=== PATIENT | female | born 1955 | race Caucasian/White ===

== ENCOUNTER 2022-03-04 10:18 | Inpatient (IN) ==
[2022-03-04] MEDS ORDERED: Iopamidol - 370 500 ML MLS IVP ONE (11:11)
[2022-03-04] MEDS ORDERED: Ipratropium/Albuterol Neb 3 ML IH ONE (11:15)
[2022-03-04 11:30] LABS: Basophils # 0.1 K/mcL (0.0-0.2); Basophils % 0.3 %; Eosinophils % 0.1 %; Hematocrit 39.6 % (35.3-44.9); Hemoglobin 12.9 g/dL (11.5-15.4); Immature Granulocytes % 0.4 % (0-4); Lymphocytes # 0.4 K/mcL (0.6-4.6); Lymphocytes % 1.9 %; Mean Corpuscular HGB Conc 32.6 g/dL (31.6-35.5); Mean Corpuscular Hemoglobin 29.1 pg (28.0-33.3); Mean Corpuscular Volume 89.2 fL (83.0-100.0); Mean Platelet Volume 8.7 fL (9.4-12.4); Monocytes # 1.3 K/mcL (0.0-1.3); Monocytes % 6.5 %; Neutrophils # 17.9 K/mcL (1.6-8.9); Platelet Count 485 K/mcL (140-400); Red Blood Count 4.44 M/mcL (3.82-4.97); Red Cell Distribution Width 13.9 % (11.5-14.5); Segmented Neutrophils % 90.8 %; White Blood Count 19.7 K/mcL (4.3-11.1)
[2022-03-04] MEDS ORDERED: Ketorolac 30 MG/ML VIAL IVP ONE (11:51)
[2022-03-04 12:03] LABS: Alanine Aminotransferase 13 Units/L (7-52); Albumin 4.3 g/dL (3.5-5.7); Albumin/Globulin Ratio 1.3 (1.1-2.2); Alkaline Phosphatase 86 Units/L (34-104); Aspartate Amino Transferase 24 Units/L (13-39); BUN/Creatinine Ratio 14 (6-26); Bilirubin,Total 0.5 mg/dL (0.3-1.0); Blood Urea Nitrogen 12 mg/dL (8-23); Calcium 9.3 mg/dL (8.6-10.3); Carbon Dioxide 26 mEq/L (23-29); Chloride 98 mEq/L (98-107); Globulin 3.4 g/dL (2.4-3.5); Glucose 138 mg/dL (70-105); Lipase 15 Units/L (11-82); Osmolality,Calculated 280 (280-300); Potassium 3.9 mEq/L (3.5-5.1); Sodium 134 mEq/L (136-145); Total Protein 7.7 g/dL (6.4-8.9); Troponin I < 0.03 ng/mL (< 0.04); eGFR For African Americans > 60 (> 60); eGFR For Non-African Americans > 60 (> 60)
[2022-03-04 12:31] LABS: Influenza A PCR Negative (Negative); Influenza B PCR Negative (Negative); Resp. Syncytial Virus PCR Negative (Negative)
[2022-03-04 12:33] LABS: SARS-CoV-2 by PCR (In House) Negative (Negative)
[2022-03-04] MEDS ORDERED: Morphine Sulfate 2 MG/ML SYRINGE IVP ONE (12:33)
[2022-03-04] MEDS ORDERED: cefTRIAXone 1,000 MG in 0.9 % Sodium Chloride 10 ML IVP ONE (14:18)
[2022-03-04] MEDS ORDERED: Naloxone 0.4 MG/ML INJ IVP PRN (14:57)
[2022-03-04] MEDS ORDERED: Ondansetron 4 MG/2 ML VIAL IVP PRN (14:57)
[2022-03-04] MEDS ORDERED: Ringers Solution, Lactated 1,000 ML IVC SCH (15:00)
[2022-03-04] MEDS ORDERED: D5% in Water 1,000 ML IVC PRN (15:03)
[2022-03-04] MEDS ORDERED: Dextrose Gel 15 GM/37.5 ML TUBE PO PRN ×2 (15:03)
[2022-03-04] MEDS ORDERED: *HR* Dextrose 50 % in Water (Syg) 50 ML SYRINGE IVP PRN (15:03)
[2022-03-04] MEDS ORDERED: *HR* Labetalol 20 MG/4 ML SYRINGE IVP PRN (15:45)
[2022-03-04] MEDS: 0.9 % Sodium Chloride 1,000 ML IVC SCH (17:53)
[2022-03-04] MEDS: Piperacillin/Tazobactam 3.375 GM in 0.9 % Sodium Chloride Mini Bag 100 ML IVPB SCH (17:54)
[2022-03-04] MEDS: Insulin LISPRO 300 UNITS/3 ML VIAL SUBQ SCH (18:01)
[2022-03-04] MEDS: Acetaminophen IV 1,000 MG/100 ML BAG IVPB SCH (18:13)
[2022-03-05] MEDS: Acetaminophen IV 1,000 MG/100 ML BAG IVPB SCH ×4 (00:10→21:09)
[2022-03-05] MEDS: Piperacillin/Tazobactam 3.375 GM in 0.9 % Sodium Chloride Mini Bag 100 ML IVPB SCH ×4 (00:11→16:56)
[2022-03-05] MEDS: Insulin LISPRO 300 UNITS/3 ML VIAL SUBQ SCH ×4 (00:12→21:08)
[2022-03-05 02:26] LABS: Basophils % 0.2 %; Hematocrit 30.9 % (35.3-44.9); Lymphocytes # 0.8 K/mcL (0.6-4.6); Lymphocytes % 3.2 %; Mean Corpuscular HGB Conc 32.7 g/dL (31.6-35.5); Mean Corpuscular Hemoglobin 29.3 pg (28.0-33.3); Mean Corpuscular Volume 89.6 fL (83.0-100.0); Monocytes # 1.6 K/mcL (0.0-1.3); Monocytes % 6.6 %; Neutrophils # 21.9 K/mcL (1.6-8.9); Platelet Count 382 K/mcL (140-400); Red Blood Count 3.45 M/mcL (3.82-4.97); Red Cell Distribution Width 14.4 % (11.5-14.5); White Blood Count 24.6 K/mcL (4.3-11.1)
[2022-03-05 02:32] LABS: Basophils # 0.1 K/mcL (0.0-0.2); Hemoglobin 10.1 g/dL (11.5-15.4)
[2022-03-05 02:33] LABS: INR 1.3; Prothrombin Time 14.9 Seconds (9.4-12.1)
[2022-03-05 02:36] LABS: Activated Partial Thrombo Time 31.4 Seconds (26.0-36.0); Magnesium 1.6 mg/dL (1.6-2.6); Phosphorous 4.1 mg/dL (2.7-4.5); Potassium 4.2 mEq/L (3.5-5.1)
[2022-03-05 03:08] LABS: Calcium 8.1 mg/dL (8.6-10.3)
[2022-03-05] MEDS: 0.9 % Sodium Chloride 1,000 ML IVC SCH ×3 (07:52→21:29)
[2022-03-05] MEDS ORDERED: Pantoprazole 40 MG VIAL IVP SCH (09:00)
[2022-03-05] MEDS ORDERED: Levothyroxine Sodium 100 MCG VIAL IVP SCH (09:00)
[2022-03-05] MEDS ORDERED: *HR* FentaNYL (PF) 100 MCG/2 ML VIAL ONE (14:25)
[2022-03-05] MEDS ORDERED: Lidocaine -MPF 2% 2 ML VIAL ONE (14:25)
[2022-03-05] MEDS ORDERED: Ondansetron 4 MG/2 ML VIAL ONE (14:25)
[2022-03-05] MEDS ORDERED: *HR* Rocuronium Bromide 50 MG/5 ML VIAL ONE (14:25)
[2022-03-05] MEDS ORDERED: *HR* Propofol 200 MG/20 ML VIAL IVP ONE ×2 (14:25→18:17)
[2022-03-05] MEDS ORDERED: Naloxone 0.4 MG/ML INJ IVP PRN ×2 (14:57→19:22)
[2022-03-05] MEDS ORDERED: Ondansetron 4 MG/2 ML VIAL IVP PRN ×2 (14:57→19:22)
[2022-03-05] MEDS ORDERED: Nitroglycerin 0.4 MG TAB.SUBL SL PRN (14:57)
[2022-03-05] MEDS ORDERED: Albuterol 2.5 MG/3 ML NEBULIZER IH PRN (14:57)
[2022-03-05] MEDS ORDERED: *HR* Midazolam HCl 2 MG/2 ML VIAL ONE (15:27)
[2022-03-05] MEDS ORDERED: Albuterol 2.5 MG/3 ML NEBULIZER IH ONE (15:29)
[2022-03-05] MEDS ORDERED: Lidocaine HCL 4 ML Topical Solution (Laryng-O-Jet Kit Sterile Pak) TP ONE (17:02)
[2022-03-05] MEDS ORDERED: Sugammadex Sodium 200 MG/2 ML VIAL IV ONE (18:27)
[2022-03-05] MEDS ORDERED: *HR* Labetalol 20 MG/4 ML SYRINGE IVP PRN ×2 (19:01→19:22)
[2022-03-05] MEDS: *HR* HYDROmorphone (PF) 1 MG/ML SYRINGE IVP PRN ×2 (19:15→19:23)
[2022-03-05] MEDS ORDERED: D5% in Water 1,000 ML IVC PRN (19:22)
[2022-03-05] MEDS ORDERED: Dextrose Gel 15 GM/37.5 ML TUBE PO PRN ×2 (19:22)
[2022-03-05] MEDS ORDERED: *HR* Dextrose 50 % in Water (Syg) 50 ML SYRINGE IVP PRN (19:22)
[2022-03-06] MEDS: Acetaminophen IV 1,000 MG/100 ML BAG IVPB SCH ×4 (00:43→16:25)
[2022-03-06] MEDS: Piperacillin/Tazobactam 3.375 GM in 0.9 % Sodium Chloride Mini Bag 100 ML IVPB SCH ×3 (00:49→16:24)
[2022-03-06] MEDS: Insulin LISPRO 300 UNITS/3 ML VIAL SUBQ SCH ×4 (01:38→17:46)
[2022-03-06] MEDS: Levalbuterol Neb 1.25 MG/3 ML IH SCH ×5 (01:58→20:29)
[2022-03-06] MEDS: 0.9 % Sodium Chloride 1,000 ML IVC SCH ×3 (02:27→11:52)
[2022-03-06 05:18] LABS: Basophils % 0.1 %; Hematocrit 28.9 % (35.3-44.9); Hemoglobin 9.1 g/dL (11.5-15.4); Lymphocytes # 0.4 K/mcL (0.6-4.6); Lymphocytes % 1.8 %; Mean Corpuscular HGB Conc 31.5 g/dL (31.6-35.5); Mean Corpuscular Hemoglobin 29.3 pg (28.0-33.3); Mean Corpuscular Volume 92.9 fL (83.0-100.0); Monocytes # 1.1 K/mcL (0.0-1.3); Monocytes % 5.1 %; Neutrophils # 19.2 K/mcL (1.6-8.9); Platelet Count 330 K/mcL (140-400); Red Blood Count 3.11 M/mcL (3.82-4.97); Red Cell Distribution Width 14.7 % (11.5-14.5); White Blood Count 20.9 K/mcL (4.3-11.1)
[2022-03-06 05:39] LABS: Alanine Aminotransferase 67 Units/L (7-52); Albumin 3.2 g/dL (3.5-5.7); Albumin/Globulin Ratio 1.2 (1.1-2.2); Alkaline Phosphatase 62 Units/L (34-104); Aspartate Amino Transferase 103 Units/L (13-39); BUN/Creatinine Ratio 17 (6-26); Bilirubin,Total 0.4 mg/dL (0.3-1.0); Blood Urea Nitrogen 15 mg/dL (8-23); Calcium 7.6 mg/dL (8.6-10.3); Carbon Dioxide 23 mEq/L (23-29); Chloride 107 mEq/L (98-107); Globulin 2.6 g/dL (2.4-3.5); Glucose 117 mg/dL (70-105); Osmolality,Calculated 286 (280-300); Sodium 137 mEq/L (136-145); Total Protein 5.8 g/dL (6.4-8.9); eGFR For African Americans > 60 (> 60); eGFR For Non-African Americans > 60 (> 60)
[2022-03-06] MEDS: ARIPiprazole 10 MG TABLET PO SCH (08:48)
[2022-03-06] MEDS: estradioL 0.5 MG TABLET PO SCH (08:48)
[2022-03-06] MEDS: PARoxetine 20 MG TABLET PO SCH (08:49)
[2022-03-06] MEDS: Pregabalin 75 MG CAPSULE PO SCH ×2 (08:49→21:21)
[2022-03-06] MEDS: Metoprolol XL (24 HR) Succ 25 MG TAB.ER.24H PO SCH (08:49)
[2022-03-06] MEDS: (Mirabegron [Myrbetriq] 50 MG Tab.Er.24h) PO SCH (08:53)
[2022-03-06] MEDS: Pantoprazole 40 MG VIAL IVP SCH (08:54)
[2022-03-06] MEDS ORDERED: Levothyroxine Sodium 100 MCG VIAL IVP SCH (09:00)
[2022-03-06] MEDS ORDERED: Fluticasone Propionate Nasal 50 MCG/SPRAY BOTTLE NS PRN (10:05)
[2022-03-06] MEDS: Budesonide/Formoterol 80/4.5 1 PUFF INH IH SCH ×2 (11:48→20:29)
[2022-03-06] MEDS: *HR* Heparin 5,000 UNIT/ML VIAL SQ SCH (17:45)
[2022-03-06] MEDS ORDERED: traZODone 50 MG TABLET PO SCH (21:00)
[2022-03-07] MEDS: Insulin LISPRO 300 UNITS/3 ML VIAL SUBQ SCH ×4 (00:32→15:09)
[2022-03-07] MEDS: traZODone 50 MG TABLET PO SCH ×2 (00:45→19:56)
[2022-03-07] MEDS: 0.9 % Sodium Chloride 1,000 ML IVC SCH ×3 (00:46→09:52)
[2022-03-07] MEDS: Piperacillin/Tazobactam 3.375 GM in 0.9 % Sodium Chloride Mini Bag 100 ML IVPB SCH ×3 (00:48→17:04)
[2022-03-07] MEDS: Acetaminophen IV 1,000 MG/100 ML BAG IVPB SCH ×4 (00:49→17:05)
[2022-03-07] MEDS: Levalbuterol Neb 1.25 MG/3 ML IH SCH ×4 (04:08→22:29)
[2022-03-07] MEDS: *HR* Heparin 5,000 UNIT/ML VIAL SQ SCH ×2 (05:25→15:09)
[2022-03-07] MEDS ORDERED: methylPREDNISolone 125 MG/2 ML VIAL IVP ONE (08:37)
[2022-03-07 09:40] LABS: Phosphorous 1.8 mg/dL (2.7-4.5)
[2022-03-07 09:41] LABS: Alanine Aminotransferase 48 Units/L (7-52); Albumin/Globulin Ratio 1.1 (1.1-2.2); Alkaline Phosphatase 53 Units/L (34-104); Aspartate Amino Transferase 38 Units/L (13-39); BUN/Creatinine Ratio 12 (6-26); Basophils % 0.3 %; Bilirubin,Total 0.4 mg/dL (0.3-1.0); Blood Urea Nitrogen 9 mg/dL (8-23); Carbon Dioxide 21 mEq/L (23-29); Chloride 110 mEq/L (98-107); Eosinophils # 0.2 K/mcL (0.0-0.6); Eosinophils % 1.3 %; Globulin 2.8 g/dL (2.4-3.5); Glucose 100 mg/dL (70-105); Hematocrit 26.6 % (35.3-44.9); Hemoglobin 8.5 g/dL (11.5-15.4); Immature Granulocytes % 0.9 % (0-4); Lymphocytes # 1.2 K/mcL (0.6-4.6); Lymphocytes % 9.6 %; Mean Corpuscular Hemoglobin 29.5 pg (28.0-33.3); Mean Corpuscular Volume 92.4 fL (83.0-100.0); Mean Platelet Volume 8.9 fL (9.4-12.4); Monocytes # 0.9 K/mcL (0.0-1.3); Monocytes % 7.7 %; Neutrophils # 9.6 K/mcL (1.6-8.9); Osmolality,Calculated 285 (280-300); Platelet Count 361 K/mcL (140-400); Potassium 3.7 mEq/L (3.5-5.1); Red Blood Count 2.88 M/mcL (3.82-4.97); Red Cell Distribution Width 14.8 % (11.5-14.5); Segmented Neutrophils % 80.2 %; Sodium 138 mEq/L (136-145); Total Protein 5.8 g/dL (6.4-8.9); eGFR For African Americans > 60 (> 60); eGFR For Non-African Americans > 60 (> 60)
[2022-03-07] MEDS: estradioL 0.5 MG TABLET PO SCH (09:48)
[2022-03-07] MEDS: PARoxetine 20 MG TABLET PO SCH (09:48)
[2022-03-07] MEDS: Metoprolol XL (24 HR) Succ 25 MG TAB.ER.24H PO SCH (09:49)
[2022-03-07] MEDS: ARIPiprazole 10 MG TABLET PO SCH (09:49)
[2022-03-07] MEDS: Pregabalin 75 MG CAPSULE PO SCH ×2 (09:49→19:56)
[2022-03-07] MEDS: Pantoprazole 40 MG VIAL IVP SCH (09:49)
[2022-03-07] MEDS: (Mirabegron [Myrbetriq] 50 MG Tab.Er.24h) PO SCH (09:51)
[2022-03-07] MEDS: DEXMETHYLPHENIDATE HCL 40 MG PO SCH (09:51)
[2022-03-07] MEDS: Budesonide/Formoterol 80/4.5 1 PUFF INH IH SCH ×2 (10:25→22:29)
[2022-03-08] MEDS: 0.9 % Sodium Chloride 1,000 ML IVC SCH ×2 (00:08→13:21)
[2022-03-08] MEDS: Acetaminophen IV 1,000 MG/100 ML BAG IVPB SCH ×5 (01:10→23:44)
[2022-03-08] MEDS: Piperacillin/Tazobactam 3.375 GM in 0.9 % Sodium Chloride Mini Bag 100 ML IVPB SCH ×3 (01:18→15:15)
[2022-03-08] MEDS: Insulin LISPRO 300 UNITS/3 ML VIAL SUBQ SCH ×5 (01:19→23:56)
[2022-03-08] MEDS: Levalbuterol Neb 1.25 MG/3 ML IH SCH ×4 (04:06→22:02)
[2022-03-08 04:49] LABS: Basophils % 0.4 %; Eosinophils % 0.1 %; Hematocrit 26.7 % (35.3-44.9); Hemoglobin 8.3 g/dL (11.5-15.4); Immature Granulocytes % 1.1 % (0-4); Lymphocytes # 0.9 K/mcL (0.6-4.6); Mean Corpuscular HGB Conc 31.1 g/dL (31.6-35.5); Mean Corpuscular Hemoglobin 28.1 pg (28.0-33.3); Mean Corpuscular Volume 90.5 fL (83.0-100.0); Mean Platelet Volume 8.9 fL (9.4-12.4); Monocytes # 0.8 K/mcL (0.0-1.3); Monocytes % 8.1 %; Neutrophils # 8.4 K/mcL (1.6-8.9); Nucleated Red Blood Cells 0.2 /100 WBC (0); Platelet Count 383 K/mcL (140-400); Red Blood Count 2.95 M/mcL (3.82-4.97); Red Cell Distribution Width 14.6 % (11.5-14.5); Segmented Neutrophils % 81.3 %; White Blood Count 10.3 K/mcL (4.3-11.1)
[2022-03-08 05:02] LABS: Alanine Aminotransferase 38 Units/L (7-52); Albumin/Globulin Ratio 1.2 (1.1-2.2); Alkaline Phosphatase 54 Units/L (34-104); Aspartate Amino Transferase 24 Units/L (13-39); BUN/Creatinine Ratio 12 (6-26); Bilirubin,Total 0.4 mg/dL (0.3-1.0); Blood Urea Nitrogen 8 mg/dL (8-23); Calcium 8.4 mg/dL (8.6-10.3); Carbon Dioxide 23 mEq/L (23-29); Chloride 110 mEq/L (98-107); Globulin 2.6 g/dL (2.4-3.5); Glucose 132 mg/dL (70-105); Osmolality,Calculated 284 (280-300); Potassium 3.6 mEq/L (3.5-5.1); Sodium 137 mEq/L (136-145); Total Protein 5.6 g/dL (6.4-8.9); eGFR For African Americans > 60 (> 60); eGFR For Non-African Americans > 60 (> 60)
[2022-03-08 05:03] LABS: Phosphorous 2.1 mg/dL (2.7-4.5)
[2022-03-08 05:22] LABS: Ferritin 85 ng/mL (10-120); Iron < 10 mcg/dL (50-170); Transferrin 211 mg/dL (203-362)
[2022-03-08] MEDS: *HR* Heparin 5,000 UNIT/ML VIAL SQ SCH ×2 (05:22→16:50)
[2022-03-08 05:27] LABS: Folate 20.4 ng/mL (3.0-16.0)
[2022-03-08] MEDS: PARoxetine 20 MG TABLET PO SCH (08:49)
[2022-03-08] MEDS: Metoprolol XL (24 HR) Succ 25 MG TAB.ER.24H PO SCH (08:49)
[2022-03-08] MEDS: ARIPiprazole 10 MG TABLET PO SCH (08:49)
[2022-03-08] MEDS: predniSONE 20 MG TABLET PO SCH (08:49)
[2022-03-08] MEDS: estradioL 0.5 MG TABLET PO SCH (08:49)
[2022-03-08] MEDS: Pregabalin 75 MG CAPSULE PO SCH ×2 (08:50→20:45)
[2022-03-08] MEDS: DEXMETHYLPHENIDATE HCL 40 MG PO SCH (08:51)
[2022-03-08] MEDS: (Mirabegron [Myrbetriq] 50 MG Tab.Er.24h) PO SCH (08:51)
[2022-03-08] MEDS: Pantoprazole 40 MG VIAL IVP SCH (08:58)
[2022-03-08] MEDS: Budesonide/Formoterol 80/4.5 1 PUFF INH IH SCH ×2 (10:50→22:03)
[2022-03-08] MEDS ORDERED: *HR* Labetalol 20 MG/4 ML SYRINGE IVP ONE ×2 (13:23→16:55)
[2022-03-08] MEDS ORDERED: Metoprolol XL (24 HR) Succ 25 MG TAB.ER.24H PO ONE (14:59)
[2022-03-08] MEDS: traZODone 50 MG TABLET PO SCH (20:45)
[2022-03-09] MEDS: Piperacillin/Tazobactam 3.375 GM in 0.9 % Sodium Chloride Mini Bag 100 ML IVPB SCH ×2 (00:06→08:02)
[2022-03-09] MEDS: *HR* Heparin 5,000 UNIT/ML VIAL SQ SCH (04:02)
[2022-03-09] MEDS: Levalbuterol Neb 1.25 MG/3 ML IH SCH ×2 (04:31→09:26)
[2022-03-09] MEDS: Acetaminophen IV 1,000 MG/100 ML BAG IVPB SCH (06:01)
[2022-03-09] MEDS: Insulin LISPRO 300 UNITS/3 ML VIAL SUBQ SCH (06:08)
[2022-03-09 07:53] VITALS: BP 158/79; PULSE 79; TEMP 97.9
[2022-03-09] MEDS: estradioL 0.5 MG TABLET PO SCH (08:07)
[2022-03-09] MEDS: ARIPiprazole 10 MG TABLET PO SCH (08:07)
[2022-03-09] MEDS: Pregabalin 75 MG CAPSULE PO SCH (08:08)
[2022-03-09] MEDS: predniSONE 20 MG TABLET PO SCH (08:08)
[2022-03-09] MEDS: PARoxetine 20 MG TABLET PO SCH (08:08)
[2022-03-09] MEDS: DEXMETHYLPHENIDATE HCL 40 MG PO SCH (08:08)
[2022-03-09] MEDS: (Mirabegron [Myrbetriq] 50 MG Tab.Er.24h) PO SCH (08:08)
[2022-03-09] MEDS: Pantoprazole 40 MG VIAL IVP SCH (08:12)
[2022-03-09] MEDS ORDERED: Metoprolol XL (24 HR) Succ 25 MG TAB.ER.24H PO SCH (09:00)
[2022-03-09] MEDS: Budesonide/Formoterol 80/4.5 1 PUFF INH IH SCH (09:26)
[2022-03-09 09:28] VITALS: O2SAT 94
== END 2022-03-09 10:34 | disposition home or self-care (01) | DRG 417 ==
LOC: 3BNU 10:18 → EMEROOARM 10:18 → SUATTDRO 15:17 → 3BNU 16:04
PROVIDERS: ADMIT Internal Medicine; ATTEND Internal Medicine